=== PATIENT | female | born 1940 | race Caucasian/White ===

== ENCOUNTER 2017-03-01 08:16 | Day surgery (SDC) | payer MEDICARE, OTHER ==
[2017-02-28 09:00] VITALS: BMI 23.6
[~2017-03-01 08:16] MED LIST: LACTATED RINGERS 1,000 ML IV SCH
[2017-03-01 08:48] VITALS: TEMP 97.7
[2017-03-01] MEDS ORDERED: LIDOCAINE 1% 20 ML VIAL (10MG/ML) FOR IV START INTRADERMA ONE (08:48)
[2017-03-01] MEDS ORDERED: LIDOCAINE 1% INJ 10MG/ML (20 ML MDV) ONE (09:13)
[2017-03-01] MEDS ORDERED: PROPOFOL 10 MG/ML 20 ML VIAL IV ONE (09:13)
--- NOTE | 2017-03-01 09:42 | P.PCN ---
Date of Procedure: 03/01/17 Procedure(s) Performed: Procedure: Colonoscopy and polypectomy. Preoperative diagnosis: Screening for neoplasia, patient has history of polyps. Postoperative diagnosis: 1. Two small right colon polyps snared but no large polyps or cancer. 2. Sigmoid diverticulosis with no evidence of acute diverticulitis or strictures. Preparation: HalfLytely prep. Sedation: Was provided by anesthesia. Brief clinical history: The patient is a 76-year-old female who is scheduled for this evaluation because of history of polyps. Her last exam was in November 2011. She has no abdominal complaints, bleeding or anemia. Procedure: With the patient on her left lateral decubitus position and after informed consent and adequate sedation, the perianal area was inspected and it did not show any fissures or fistulas. There were no masses felt on digital rectal examination. The Olympus CFQ 160L video colonoscope was then inserted in the rectum in the usual fashion and advanced to the cecum. There were multiple diverticular orifices seen scattered in the sigmoid as previously described with no evidence of acute diverticulitis or strictures. 2 small polyps, around 3-4 mm each, were snared in the right colon. Unfortunately, the suction channels were blocked at that point and it was not possible to retrieve these small polyps by suction. The mucosa, otherwise, appeared healthy. No other polyps or tumors were seen. The patient tolerated the procedure well. Plan: The patient was reassured. She will follow-up with you as planned. Consideration could be given for repeat exam in 5 years depending on her overall health at that time. She will be discussing that with you.
[2017-03-01 10:19] VITALS: BP 145/87; PULSE 57; RESP 18
== END 2017-03-01 09:56 | disposition home or self-care (01) ==
LOC: ORWHC2ENDO 08:16
DX: Z12.11 Encounter for screening for malignant neoplasm of colon (principal); K63.5 Polyp of colon; K57.30 Diverticulosis of large intestine without perforation or abscess without bleeding; Z86.010 Personal history of colon polyps; Z79.899 Other long term (current) drug therapy
CPT/HCPCS: 45385; J2001; J2704

== ENCOUNTER → 2019-03-06 | Outpatient (CLI) | payer MEDICARE ==
--- NOTE | 2019-03-07 09:09 | BD ---
EXAMINATION TYPE: Axial Bone Density DATE OF EXAM: 03/06/2019 COMPARISON: 11.09.2011 CLINICAL HISTORY: M [age] Height: Weight: FRAX RISK QUESTIONS: Alcohol (3 or more units per day): no Family History (Parent hip fracture): yes-mother Glucocorticoids (More than 3mos): no (Ex: prednisone, prednisolone, methylprednisolone, dexamethasone, and hydrocortisone). History of Fracture in Adulthood: no Secondary Osteoporosis: 1. Type 1 Diabetes: no 2. Hyperthyroidism: no 3. Menopause before 45: yes 4. Malnutrition: no 5. Chronic liver disease: no Rheumatoid Arthritis: no Current Tobacco Use: no RISK FACTORS HISTORY OF: Family History of Osteoporosis: no Active: yes Diet low in dairy products/other sources of calcium: yes Postmenopausal woman: age 43 Lost more than 2 inches in height since high school: no MEDICATIONS: water pill, allergy med, b12 Additional History: EXAM MEASUREMENTS: Bone mineral densitometry was performed using the [employer] System. Bone mineral density as measured about the Lumbar spine is: ----- L1-L4(G/cm2): 1.251 T Score Values are as follows: ----- L2: -0.5 ----- L3: 0.7 ----- L4: 1.9 ----- L1-L4: 0.6 Bone mineral density has: increased 6.7 % since study of: 11.09.2011 Bone mineral density about the R hip (g/cm2): 0.807 Bone mineral density about the L hip (g/cm2): 0.850 T Score values are as follows: -----R Neck: -1.7 -----L Neck: -1.4 -----R Total: -1.6 -----L Total: -1.2 Bone mineral density has: decreased -2.7% since study of: 11.09.2011 IMPRESSION: Osteopenia (T Score between -2.5 and -1). There is slightly increased risk of fracture and the patient may be considered for treatment. Re-Screen 2-5 years. NOTE: T-SCORE=SD OF THE YOUNG ADULT MEAN.
--- NOTE | 2019-03-11 09:10 | MM ---
Reason for exam: screening (asymptomatic). Last mammogram was performed 4 years and 1 month ago. History: Patient is postmenopausal. Benign US left CoreBiopsy of the left breast, December 13, 2004. Benign excisional biopsy of the left breast, 1993. Physical Findings: A clinical breast exam by your physician is recommended on an annual basis and results should be correlated with mammographic findings. MG Screening Mammo w CAD Bilateral CC and MLO view(s) were taken. Prior study comparison: January 21, 2015, bilateral MG screening mammo w CAD. December 15, 2013, bilateral MG screening mammo w CAD. The breast tissue is heterogeneously dense. This may lower the sensitivity of mammography. Previous mammotome biopsy in the left breast. No significant changes when compared with prior studies. ASSESSMENT: Benign, BI-RAD 2 RECOMMENDATION: Routine screening mammogram of both breasts in 1 year.
== END ==
LOC: RADMAMWWP 14:22
PROVIDERS: ATTEND Family Medicine
DX: M85.80 Other specified disorders of bone density and structure, unspecified site (principal); Z12.31 Encounter for screening mammogram for malignant neoplasm of breast; Z78.0 Asymptomatic menopausal state; Z82.62 Family history of osteoporosis
CPT/HCPCS: 77067; 77080